=== PATIENT | female | born 1960 | race Caucasian/White ===

== ENCOUNTER 2020-05-08 06:10 | Emergency (ER) | payer OTHER ==
[2020-05-08] MEDS ORDERED: Sodium Chloride 0.9% 10 ML Syringe FLUSH PRN (06:32)
[2020-05-08] MEDS: Lactated Ringers 1,000 ML IV ONE (06:45)
[2020-05-08] MEDS: diphenhydrAMINE 50 MG/ML SDV IVPUSH ONE (06:50)
[2020-05-08] MEDS: HYDROmorphone 0.5 MG/0.5 ML Syringe IV ONE ×2 (06:52→08:59)
[2020-05-08 07:38] LABS: CHLORIDE,CL 101 mmol/L (98-107); SODIUM,NA 139 mmol/L (136-145)
[2020-05-08 07:39] LABS: ANION GAP 18.8 mmol/L (5-15)
--- NOTE | 2020-05-08 08:29 | EDM.PDOC ---
ED HPI GENERAL MEDICAL PROBLEM - General Chief Complaint: Abdominal Pain Stated Complaint: RUQ abdominal pain, back Time Seen by Provider: 05/08/20 06:30 Source of Information: Reports: Patient History Limitations: Reports: No Limitations - History of Present Illness INITIAL COMMENTS - FREE TEXT/NARRATIVE: Patient presents emergency department this morning with complaints of right upper quadrant abdominal pain. This patient for the past month or 2 has had recurrent waxing and waning intermittent right upper quadrant abdominal pain. She is also been struggling with some heartburn as well. She was placed on acid a couple of weeks ago that has helped her heartburn although she continues to have this waxing and waning right upper quadrant abdominal pain. This morning it woke her up and she was unable to fall back asleep. This is a first time that is continued for many hours. She has had some nausea without vomiting. No fever no chills. No chest pain no shortness of breath or difficulty breathing. No cough or congestion. No weakness dizziness lightheadedness. No syncope. No hematuria dysuria or urinary frequency. No black or tarry stools. No diarrhea or hematochezia. No Covid exposure no Covid symptoms. RUQ abdomen Pain Score (Numeric/FACES): 6 - Related Data Allergies Allergy/AdvReac Type Severity Reaction Status Date / Time Penicillins Allergy Swelling Verified 05/08/20 06:27 Home Meds: Home Meds Acetaminophen/HYDROcodone [[place] 325-5 MG] 1 tab PO Q4H PRN #12 tablet 05/08/20 [Rx] Famotidine [Pepcid] 40 mg PO DAILY 05/08/20 [History] Past Medical History Gastrointestinal History: Reports: GERD - Past Surgical History HEENT Surgical History: Reports: Tonsillectomy Social & Family History - Tobacco Use Tobacco Use Status *Q: Unknown Ever Used Tobacco ED ROS GENERAL - Review of Systems Review Of Systems: Comprehensive ROS is negative, except as noted in HPI. ED EXAM, GI/ABD - Physical Exam Exam: See Below Text/Narrative:: This is a morbidly obese patient who appears mild to moderately uncomfortable who is laying on the bed with her right arm extended up and over her head leaning to her left because of her pain in her right upper abdomen. Exam Limited By: No Limitations General Appearance: Alert, WD/WN, Mild Distress Eyes: Bilateral: EOMI Ears: Normal External Exam Nose: Normal Inspection Throat/Mouth: Normal Inspection Head: Atraumatic, Normocephalic Neck: Normal Inspection, Supple Respiratory/Chest: No Respiratory Distress, Lungs Clear, Normal Breath Sounds, No Accessory Muscle Use, Chest Non-Tender Cardiovascular: Normal Peripheral Pulses, Regular Rate, Rhythm GI/Abdominal Exam: Normal Bowel Sounds, Soft, Guarding, Tender (RUQ). No: Distended, Rigid, Rebound (Female) Exam: Deferred Rectal (Female) Exam: Deferred Back Exam: Normal Inspection, Full Range of Motion. No: CVA Tenderness (L), CVA Tenderness (R) Extremities: Normal Inspection, Normal Range of Motion, Non-Tender, Normal Capillary Refill Neurological: Alert, Oriented, CN II-XII Intact, Normal Cognition, No Motor/Sensory Deficits Psychiatric: Normal Affect, Normal Mood Skin Exam: Warm, Dry, Intact, Normal Color, No Rash Lymphatic: No Adenopathy Course - Vital Signs Last Recorded V/S: Last Vital Signs Temp 97.2 F 05/08/20 06:10 Pulse 60 05/08/20 06:10 Resp 20 05/08/20 06:10 BP 194/81 H 05/08/20 06:10 Pulse Ox 99 05/08/20 06:10 - Orders/Labs/Meds Orders: Active Orders 24 hr Category Date Time Status Peripheral IV Insertion Adult [OM.PC] Stat Oth 05/08/20 06:32 Ordered Labs: Laboratory Tests 05/08/20 05/08/20 05/08/20 Range/Units 06:35 06:45 06:45 WBC 9.3 (4.0-10.0) x10^3/uL RBC 4.94 (4.00-5.50) x10^6/uL Hgb 15.0 (12.0-16.0) g/dL Hct 44.3 (33.0-47.0) % MCV 89.7 (78.0-93.0) fL MCH 30.4 (26.0-32.0) pg MCHC 33.9 (32.0-36.0) g/dL RDW Coeff of Mayur 12.4 (10.0-15.0) % Plt Count 373 (130-400) x10^3/uL Neut % (Auto) 70.3 (50.0-80.0) % Lymph % (Auto) 21.4 L (25.0-50.0) % [place] % (Auto) 6.5 (2.0-11.0) % Eos % (Auto) 1.4 (0.0-4.0) % Baso % (Auto) 0.4 (0.2-1.2) % Sodium 139 (136-145) mmol/L Potassium 3.8 (3.5-5.1) mmol/L Chloride 101 (98-107) mmol/L Carbon Dioxide 23 (21-32) mmol/L Anion Gap 18.8 H (5-15) mmol/L BUN 9 (7-18) mg/dL Creatinine 0.9 (0.55-1.02) mg/dL Est Cr Clr Drug Dosing 58.12 mL/min Estimated GFR (MDRD) > 60 Glucose 99 (74-106) mg/dL Calcium 9.3 (8.5-10.1) mg/dL Corrected Calcium 9.22 (8.5-10.1) mg/dL Total Bilirubin 0.8 (0.2-1.0) mg/dL AST 20 (15-37) U/L ALT 18 (14-59) U/L Alkaline Phosphatase 105 (46-116) U/L C-Reactive Protein (<=0.9) mg/dL Total Protein 8.5 H (6.4-8.2) g/dL Albumin 4.1 (3.4-5.0) g/dL Globulin 4.4 Albumin/Globulin Ratio 0.93 Lipase 63 L (73-393) U/L Urine Color Dark yellow H (YELLOW) Urine Appearance Slightly cloudy H (CLEAR) Urine pH 5.5 (5.0-8.0) Ur Specific [place] >=1.030 Urine Protein 30 H (NEGATIVE) mg/dL Urine Glucose (UA) Negative (NEGATIVE) mg/dL Urine Ketones 80 H (NEGATIVE) mg/dL Urine Occult Blood Moderate H (NEGATIVE) Urine Nitrite Negative (NEGATIVE) Urine Bilirubin Large H (NEGATIVE) Urine Urobilinogen 1.0 (0.2) EU/dL Ur Leukocyte Esterase Negative (NEGATIVE) U Hyaline Cast (Auto) Few Urine RBC 5-10 H (NOT SEEN) /HPF Urine WBC 0-5 (NOT SEEN) /HPF Ur Squamous Epith Cells Many H (NEGATIVE) /HPF Urine Bacteria Few H (NEGATIVE) /HPF Urine Mucus Rare H (NEGATIVE) /LPF 05/08/20 Range/Units 06:45 WBC (4.0-10.0) x10^3/uL RBC (4.00-5.50) x10^6/uL Hgb (12.0-16.0) g/dL Hct (33.0-47.0) % MCV (78.0-93.0) fL MCH (26.0-32.0) pg MCHC (32.0-36.0) g/dL RDW Coeff of Mayur (10.0-15.0) % Plt Count (130-400) x10^3/uL Neut % (Auto) (50.0-80.0) % Lymph % (Auto) (25.0-50.0) % Tw[place]gs % (Auto) (2.0-11.0) % Eos % (Auto) (0.0-4.0) % Baso % (Auto) (0.2-1.2) % Sodium (136-145) mmol/L Potassium (3.5-5.1) mmol/L Chloride (98-107) mmol/L Carbon Dioxide (21-32) mmol/L Anion Gap (5-15) mmol/L BUN (7-18) mg/dL Creatinine (0.55-1.02) mg/dL Est Cr Clr Drug Dosing mL/min Estimated GFR (MDRD) Glucose (74-106) mg/dL Calcium (8.5-10.1) mg/dL Corrected Calcium (8.5-10.1) mg/dL Total Bilirubin (0.2-1.0) mg/dL AST (15-37) U/L ALT (14-59) U/L Alkaline Phosphatase (46-116) U/L C-Reactive Protein 0.6 (<=0.9) mg/dL Total Protein (6.4-8.2) g/dL Albumin (3.4-5.0) g/dL Globulin Albumin/Globulin Ratio Lipase (73-393) U/L Urine Color (YELLOW) Urine Appearance (CLEAR) Urine pH (5.0-8.0) Ur Specific [place] Urine Protein (NEGATIVE) mg/dL Urine Glucose (UA) (NEGATIVE) mg/dL Urine Ketones (NEGATIVE) mg/dL Urine Occult Blood (NEGATIVE) Urine Nitrite (NEGATIVE) Urine Bilirubin (NEGATIVE) Urine Urobilinogen (0.2) EU/dL Ur Leukocyte Esterase (NEGATIVE) U Hyaline Cast (Auto) Urine RBC (NOT SEEN) /HPF Urine WBC (NOT SEEN) /HPF Ur Squamous Epith Cells (NEGATIVE) /HPF Urine Bacteria (NEGATIVE) /HPF Urine Mucus (NEGATIVE) /LPF Meds: Medications Discontinued Medications Generic Name Dose Route Start Last Admin Trade Name Freq PRN Reason Stop Dose Admin Diphenhydramine HCl 25 mg 05/08/20 06:32 05/08/20 06:50 Benadryl IVPUSH 05/08/20 06:33 25 mg ONETIME ONE Administration Hydromorphone HCl 0.5 mg 05/08/20 06:32 05/08/20 06:52 Dilaudid IV 05/08/20 06:33 0.5 mg ONETIME ONE Administration Hydromorphone HCl 0.5 mg 05/08/20 08:45 05/08/20 08:59 Dilaudid IV 05/08/20 08:46 0.5 mg ONETIME ONE Administration Lactated Ringer's 1,000 mls @ 999 mls/hr 05/08/20 06:32 05/08/20 06:45 Ringers, Lactated IV 05/08/20 07:32 999 mls/hr ONETIME ONE Administration Sodium Chloride 10 ml 05/08/20 06:32 Saline Flush FLUSH ASDIRECTED PRN Keep Vein Open - Re-Assessments/Exams Free Text/Narrative Re-Assessment/Exam: 05/08/20 IV established labs were drawn. Dilaudid 0.5mg IVP Benadryl 25mg IVP With almost complete resolution of her pain. Her laboratory evaluation is rather unremarkable. She has a normal white blood cell count at 9.3 with a hemoglobin of 15.0 and a platelet count of 373. CMP with a mild elevation in her anion gap at 18.8 otherwise unremarkable. Normal T bili of 0.8 AST 20 and ALT 18 both normal. CRP negative at 0.6. Her lipase is 63. A repeat dose of 0.5 of Dilaudid completely resolved her pain and she was completely pain-free. Reexamination of the abdomen shows a soft nontender nondi stended abdomen. She has no CVA tenderness. Really have concerns for biliary colic versus cholelithiasis. Unlikely for her to have acute cholecystitis without elevation of white blood cell count as well as normal CRP. We set her up with the [facility] to have an ultrasound of her right upper quadrant completed today at 1420 hrs. Going to have the tech contact me following the procedure for further direction and guidance after I know what her ultrasound is. We will send her home with some hydrocodone for pain. She is comfortable with this plan and her questions are answered. 2214 Later in the night as I am completing her chart I now see her urinalysis which shows that she has some blood in her urine. 05 URBCs. Moderate amount of occult blood. No nitrites or leukocytes. No WBCs. This could be that she had a kidney stone and not her gallbladder I had initially thought. I did review her [facility] chart at this time and it does not appear that she presented to the clinic today to have her ultrasound completed. At this time I called her cell phone #[phone] multiple times with no answer and there is no voicemail that is set up. I will attempt to contact her tomorrow during the day and discussed with her the possibility of doing an outpatient CT scan looking for renal calculi. Although at this time I am unable to contact the patient. I will continue tomorrow. Departure - Departure Time of Disposition: 08:23 Disposition: Home, Self-Care 01 Clinical Impression: RUQ abdominal pain - Discharge Information Prescriptions: Acetaminophen/HYDROcodone [[place] 325-5 MG] 1 tab PO Q4H PRN #12 tablet PRN Reason: Pain Instructions: Cholelithiasis, [id number], Biliary Colic, Adult Referrals: PCP,None [Primary Care Provider] - Forms: ED Department Discharge, ED Return to Work/School Form Additional Instructions: Do not eat or drink anything until your Ultrasound appointment today that is scheduled at 2:20 at the [facility] here in [place]. Please remind the tech to either call me in the ED at [phone] or fax me the [employer] work sheet [phone] I will call you after I get the results review them with you and direct further at that time. I do think this is biliary colic or pain from your gallbladder. Low fat diet. See discharge instructions. You may continue the pepcid as well. Drink plenty of fluids the next few days. Tylenol and or Ibuprofen as needed for pain. If pain not controlled with above. [place] 1 tablet every 4 hrs with food as needed for pain. Caution sedation. Do not take with Tylenol as this medication has Tylenol in it. Rx sent to [facility]. Return to the ED if new or worsening symptoms. Further instructions after your ultrasound today. Sepsis Event Note (ED) - Evaluation Sepsis Screening Result: No Definite Risk - My Orders Last 24 Hours: My Active Orders 05/08/20 06:32 Peripheral IV Insertion Adult [OM.PC] Stat - Assessment/Plan Last 24 Hours: My Active Orders 05/08/20 06:32 Peripheral IV Insertion Adult [OM.PC] Stat
== END 2020-05-08 09:15 | disposition home or self-care (01) ==
LOC: VM.ED 06:10
DX: R10.11 Right upper quadrant pain (principal); K21.9 Gastro-esophageal reflux disease without esophagitis; R11.0 Nausea; Z88.0 Allergy status to penicillin; Z79.899 Other long term (current) drug therapy
CPT/HCPCS: 80053; 81001; 83690; 85025; 86140; 96374; 96375; 96376; 99284; J1170; J1200; J7120

== ENCOUNTER 2020-05-14 09:01 | Emergency (ER) | payer OTHER ==
[2020-05-14] MEDS ORDERED: Sodium Chloride 0.9% 10 ML Syringe FLUSH PRN (09:05)
[2020-05-14] MEDS ORDERED: Lactated Ringers 1,000 ML IV ONE (09:06)
[2020-05-14] MEDS ORDERED: HYDROmorphone 1 MG/ML Syringe IVPUSH ONE ×2 (09:06→11:39)
[2020-05-14] MEDS ORDERED: diphenhydrAMINE 50 MG/ML SDV IVPUSH ONE (09:06)
[2020-05-14 09:41] LABS: CHLORIDE,CL 105 mmol/L (98-107); SODIUM,NA 144 mmol/L (136-145)
--- NOTE | 2020-05-14 10:11 | EDM.PDOC ---
ED HPI GENERAL MEDICAL PROBLEM - General Chief Complaint: Abdominal Pain Time Seen by Provider: 05/14/20 09:15 Source of Information: Reports: Patient History Limitations: Reports: No Limitations - History of Present Illness INITIAL COMMENTS - FREE TEXT/NARRATIVE: Patient presents to the emergency department from the clinic for evaluation of right flank and right upper quadrant pain. This patient was seen in the emergency department by myself last week with very similar complaints. I had concerns for biliary colic at that time. She was given IV pain meds with resolution of her pain. She had an ultrasound that was completed yesterday as she had missed the one that I had initially ordered on the day of her ER visit. She was going to the clinic today for follow-up following her ultrasound. On the way to the emergency department her pain was getting out of control. She had worsening pain in her right flank in the right upper quadrant. She has had diarrhea the last couple of days. No nausea no vomiting. No fever no chills. No chest pain no shortness of breath or difficulty breathing. No hematuria dysuria or urinary frequency. No COVID esposure no COVID symptoms. She has not eaten much the last couple of days. She reports that she has been following the gallbladder diet as discussed in the emergency department. She had multiple peanut butter and jelly sandwiches yesterday as well as ice cream last night. She has not had anything to eat yet today. She has been using the hydrocodone for her pain relief but she does not have many of them left they typically do a pretty good job controlling her pain. Right Flank Pain Score (Numeric/FACES): 7 - Related Data Allergies Allergy/AdvReac Type Severity Reaction Status Date / Time Penicillins Allergy Swelling Verified 05/14/20 09:26 Home Meds: Home Meds Acetaminophen/HYDROcodone [[place] 325-5 MG] 1 tab PO Q4H PRN #12 tablet 05/08/20 [Rx] Famotidine [Pepcid] 40 mg PO DAILY 05/08/20 [History] Acetaminophen/HYDROcodone [[place] 325-5 MG] 1 tab PO Q4H PRN #12 tablet 05/14/20 [Rx] Past Medical History Gastrointestinal History: Reports: GERD - Past Surgical History HEENT Surgical History: Reports: Tonsillectomy Review of Systems - Review of Systems Review Of Systems: Comprehensive ROS is negative, except as noted in HPI. ED EXAM, GENERAL - Physical Exam Exam: See Below Exam Limited By: No Limitations General Appearance: Alert, WD/WN, Mild Distress Eye Exam: Bilateral Eye: EOMI, PERRL Ears: Normal External Exam Nose: Normal Inspection Throat/Mouth: Normal Inspection Head: Atraumatic, Normocephalic Neck: Normal Inspection, Supple, Non-Tender Respiratory/Chest: No Respiratory Distress, Lungs Clear, Normal Breath Sounds, No Accessory Muscle Use, Chest Non-Tender Cardiovascular: Normal Peripheral Pulses, Regular Rate, Rhythm Peripheral Pulses: 2+: Radial (L), Radial (R), Posterior Tibial (L), Posterior Tibial (R), Dorsalis Pedis (L), Dorsalis Pedis (R) GI/Abdominal: Normal Bowel Sounds, Soft, No Mass, Pelvis Stable, Tender (RUQ not as tender as she was when I saw her last week. ). No: Distended, Guarding, Rigid, Rebound, Hepatomegaly, Splenomegaly (Female) Exam: Deferred Rectal (Female) Exam: Deferred Back Exam: Normal Inspection, Full Range of Motion. No: CVA Tenderness (L), CVA Tenderness (R) Extremities: Normal Inspection, Normal Range of Motion, Normal Capillary Refill Neurological: Alert, Oriented, Normal Cognition, Normal Gait, No Motor/Sensory Deficits Psychiatric: Normal Affect, Normal Mood Skin Exam: Warm, Dry, Intact, Normal Color, No Rash Course - Vital Signs Last Recorded V/S: Last Vital Signs Temp 97.8 F 05/14/20 09:01 Pulse 74 05/14/20 09:01 Resp 20 05/14/20 09:01 BP 154/88 H 05/14/20 09:01 Pulse Ox 100 05/14/20 09:01 - Orders/Labs/Meds Orders: Active Orders 24 hr Category Date Time Status Peripheral IV Insertion Adult [OM.PC] Stat Oth 05/14/20 09:05 Ordered Labs: Laboratory Tests 05/14/20 05/14/20 05/14/20 Range/Units 09:16 09:16 09:16 WBC 7.1 (4.0-10.0) x10^3/uL RBC 4.64 (4.00-5.50) x10^6/uL Hgb 13.9 (12.0-16.0) g/dL Hct 42.3 (33.0-47.0) % MCV 91.2 (78.0-93.0) fL MCH 30.0 (26.0-32.0) pg MCHC 32.9 (32.0-36.0) g/dL RDW Coeff of Mayur 12.7 (10.0-15.0) % Plt Count 378 (130-400) x10^3/uL Neut % (Auto) 55.6 (50.0-80.0) % Lymph % (Auto) 33.5 (25.0-50.0) % Bradley % (Auto) 5.8 (2.0-11.0) % Eos % (Auto) 4.7 H (0.0-4.0) % Baso % (Auto) 0.4 (0.2-1.2) % Sodium 144 (136-145) mmol/L Potassium 4.0 (3.5-5.1) mmol/L Chloride 105 (98-107) mmol/L Carbon Dioxide 27 (21-32) mmol/L Anion Gap 16.0 H (5-15) mmol/L BUN 14 (7-18) mg/dL Creatinine 0.9 (0.55-1.02) mg/dL Est Cr Clr Drug Dosing TNP Estimated GFR (MDRD) > 60 Glucose 94 (74-106) mg/dL Lactic Acid 1.3 (0.4-2.0) mmol/L Calcium 9.4 (8.5-10.1) mg/dL Corrected Calcium 9.48 (8.5-10.1) mg/dL Total Bilirubin 0.5 (0.2-1.0) mg/dL AST 13 L (15-37) U/L ALT 19 (14-59) U/L Alkaline Phosphatase 105 (46-116) U/L C-Reactive Protein 0.8 (<=0.9) mg/dL Total Protein 7.9 (6.4-8.2) g/dL Albumin 3.9 (3.4-5.0) g/dL Globulin 4.0 Albumin/Globulin Ratio 0.98 Lipase 80 (73-393) U/L Urine Color (YELLOW) Urine Appearance (CLEAR) Urine pH (5.0-8.0) Ur Specific [place] Urine Protein (NEGATIVE) mg/dL Urine Glucose (UA) (NEGATIVE) mg/dL Urine Ketones (NEGATIVE) mg/dL Urine Occult Blood (NEGATIVE) Urine Nitrite (NEGATIVE) Urine Bilirubin (NEGATIVE) Urine Urobilinogen (0.2) EU/dL Ur Leukocyte Esterase (NEGATIVE) Urine RBC (NOT SEEN) /HPF Urine WBC (NOT SEEN) /HPF Ur Squamous Epith Cells (NEGATIVE) /HPF Urine Bacteria (NEGATIVE) /HPF Urine Mucus (NEGATIVE) /LPF Urine HCG, Qual (NEGATIVE) 05/14/20 05/14/20 Range/Units 11:12 11:12 WBC (4.0-10.0) x10^3/uL RBC (4.00-5.50) x10^6/uL Hgb (12.0-16.0) g/dL Hct (33.0-47.0) % MCV (78.0-93.0) fL MCH (26.0-32.0) pg MCHC (32.0-36.0) g/dL RDW Coeff of Mayur (10.0-15.0) % Plt Count (130-400) x10^3/uL Neut % (Auto) (50.0-80.0) % Lymph % (Auto) (25.0-50.0) % Bradley % (Auto) (2.0-11.0) % Eos % (Auto) (0.0-4.0) % Baso % (Auto) (0.2-1.2) % Sodium (136-145) mmol/L Potassium (3.5-5.1) mmol/L Chloride (98-107) mmol/L Carbon Dioxide (21-32) mmol/L Anion Gap (5-15) mmol/L BUN (7-18) mg/dL Creatinine (0.55-1.02) mg/dL Est Cr Clr Drug Dosing Estimated GFR (MDRD) Glucose (74-106) mg/dL Lactic Acid (0.4-2.0) mmol/L Calcium (8.5-10.1) mg/dL Corrected Calcium (8.5-10.1) mg/dL Total Bilirubin (0.2-1.0) mg/dL AST (15-37) U/L ALT (14-59) U/L Alkaline Phosphatase (46-116) U/L C-Reactive Protein (<=0.9) mg/dL Total Protein (6.4-8.2) g/dL Albumin (3.4-5.0) g/dL Globulin Albumin/Globulin Ratio Lipase (73-393) U/L Urine Color Yellow (YELLOW) Urine Appearance Slightly cloudy H (CLEAR) Urine pH 5.5 (5.0-8.0) Ur Specific [place] >=1.030 Urine Protein Trace H (NEGATIVE) mg/dL Urine Glucose (UA) Negative (NEGATIVE) mg/dL Urine Ketones Negative (NEGATIVE) mg/dL Urine Occult Blood Negative (NEGATIVE) Urine Nitrite Negative (NEGATIVE) Urine Bilirubin Small H (NEGATIVE) Urine Urobilinogen 0.2 (0.2) EU/dL Ur Leukocyte Esterase Negative (NEGATIVE) Urine RBC 0-5 (NOT SEEN) /HPF Urine WBC 0-5 (NOT SEEN) /HPF Ur Squamous Epith Cells Occasional H (NEGATIVE) /HPF Urine Bacteria Rare (NEGATIVE) /HPF Urine Mucus Occasional H (NEGATIVE) /LPF Urine HCG, Qual Negative (NEGATIVE) Meds: Medications Discontinued Medications Generic Name Dose Route Start Last Admin Trade Name Freq PRN Reason Stop Dose Admin Diphenhydramine HCl 25 mg 05/14/20 09:06 05/14/20 09:51 Benadryl IVPUSH 05/14/20 09:07 25 mg ONETIME ONE Administration Hydromorphone HCl 1 mg 05/14/20 09:06 05/14/20 09:47 Dilaudid IVPUSH 05/14/20 09:07 1 mg ONETIME ONE Administration Hydromorphone HCl 1 mg 05/14/20 11:39 05/14/20 11:50 Dilaudid IVPUSH 05/14/20 11:40 1 mg ONETIME ONE Administration Lactated Ringer's 1,000 mls @ 999 mls/hr 05/14/20 09:06 05/14/20 09:45 Ringers, Lactated IV 05/14/20 10:06 999 mls/hr ONETIME ONE Administration Ketorolac Tromethamine 30 mg 05/14/20 11:39 05/14/20 11:53 Toradol IVPUSH 05/14/20 11:40 30 mg ONETIME ONE Administration Sodium Chloride 10 ml 05/14/20 09:05 Saline Flush FLUSH ASDIRECTED PRN Keep Vein Open - Re-Assessments/Exams Free Text/Narrative Re-Assessment/Exam: 05/14/20 10:11 IV was established. Labs are drawn. Benadryl 25 mg IV push. Dilaudid 1 mg IV push. LR 1 L wide open. Laboratory evaluation with a normal white blood cell count at 7.1, hemoglobin 13.9, platelet count 378. CMP is rather unremarkable mild elevation of the ALT at 13 normal creatinine sodium and potassium. Lactic acid normal at 1.3. CRP 0.8. Urinalysis negative for leukocytes nitrates. Trace of protein. Did review her ultrasound that was completed in the clinic that showed no presence of pericystic fluid just 1 day prior to her ER visit. Normal gallbladder anderson. She has some gallbladder sludge normal and common bile duct. She had pretty good resolution of her pain with the Dilaudid down to about a 3. We repeated the Dilaudid and she was completely pain-free. She has no nausea or vomiting. Her abdomen is soft nontender nondistended. She is quite comfortable. She was monitored in the emergency department and had no recurrence of her pain. Her urinalysis is negative for any blood I had had some concerns previously about a kidney stone but I do not see any clinical evidence of it and her exam and story is really gallbladder. We will discharge her home at this time with hydrocodone for continued pain management. I discussed with her at length that it is important for her to follow a gallbladder diet which she is clearly not been doing. She most likely needs a HIDA scan for evaluation of dysfunctional gallbladder disease. This needs to be ordered through the clinic. Discharge directions as below are explained to the patient she was comfortable with this plan and her questions are answered. Departure - Departure Time of Disposition: 11:30 Disposition: Home, Self-Care 01 Clinical Impression: RUQ abdominal pain, Recurrent biliary colic - Discharge Information Prescriptions: Acetaminophen/HYDROcodone [[place] 325-5 MG] 1 tab PO Q4H PRN #12 tablet PRN Reason: Pain Instructions: Cholelithiasis, [id number], Biliary Colic, Adult, Abdominal Pain, Adult, Gome-[id number]-[id number], Gallbladder Eating Plan Referrals: Sherlyn Watson PA-C [Primary Care Provider] - Forms: ED Department Discharge, ED Return to Work/School Form Additional Instructions: Again follow the low fat diet to prevent reoccurrence of the gallbladder pain. Tylenol and or Ibuprofen as needed for pain. If pain not controlled with above. [place] 1 tablet every 4 hrs with food as n eeded for pain. Caution sedation. Do not take with Tylenol as this has Tylenol in it as well. Rx sent to [facility] pharmacy. Make sure and drink plenty of fluids. Recheck in the clinic tomorrow for possible HIDA scan for testing for dysfunctional gallbladder disease. Return to the ED if new or worsening symptoms. Sepsis Event Note (ED) - Evaluation Sepsis Screening Result: No Definite Risk - My Orders Last 24 Hours: My Active Orders 05/14/20 09:05 Peripheral IV Insertion Adult [OM.PC] Stat - Assessment/Plan Last 24 Hours: My Active Orders 05/14/20 09:05 Peripheral IV Insertion Adult [OM.PC] Stat
[2020-05-14] MEDS ORDERED: Ketorolac 30 MG/ML SDV IVPUSH ONE (11:39)
== END 2020-05-14 13:17 | disposition home or self-care (01) ==
LOC: VM.ED 09:01
DX: K80.50 Calculus of bile duct without cholangitis or cholecystitis without obstruction (principal); K21.9 Gastro-esophageal reflux disease without esophagitis; Z79.899 Other long term (current) drug therapy; Z88.0 Allergy status to penicillin
CPT/HCPCS: 36415; 80053; 81001; 81025; 83605; 83690; 85025; 86140; 96374; 96375; 96376; 99284; 99284-25; J1170; J1200; J1885; J7120